=== PATIENT | male | born 1975 | race Caucasian/White ===

== ENCOUNTER 2018-05-24 07:05 | Emergency (ER) | payer MEDICAID ==
[~2018-05-24] VITALS: Ht 172.7 cm; Wt 106.6 kg
[~2018-05-24 07:05] MED LIST: ALPR0.5T96 PO; GLU500 PO; HUMALIN SQ
[2018-05-24 07:10] VITALS: BP_SYST 148
[2018-05-24] MEDS ORDERED: SULFAMETHOXAZOLE/TRIMETHOPR DS 1 TABLET PO ONE (07:45)
[2018-05-24 08:05] VITALS: BP_SYST 132
== END 2018-05-24 08:05 | disposition home or self-care (01) ==
LOC: SED 07:05
DX: L03.032 Cellulitis of left toe (principal); E11.9 Type 2 diabetes mellitus without complications; I10 Essential (primary) hypertension; Z88.0 Allergy status to penicillin; Z79.899 Other long term (current) drug therapy
CPT/HCPCS: 99283

== ENCOUNTER 2018-08-18 07:33 | Emergency (ER) | payer MEDICAID ==
[~2018-08-18] VITALS: Ht 172.7 cm; Wt 106.6 kg
[2018-08-18 07:33] VITALS: BP_SYST 155
[~2018-08-18 07:33] MED LIST changes: +ALPR0.5T PO; -ALPR0.5T96 PO
[2018-08-18 08:14] VITALS: BP_SYST 155
== END 2018-08-18 08:14 | disposition home or self-care (01) ==
LOC: SED 07:33
DX: H60.91 Unspecified otitis externa, right ear (principal); Z88.0 Allergy status to penicillin; Z79.899 Other long term (current) drug therapy
CPT/HCPCS: 99283

== ENCOUNTER 2019-01-16 06:48 | Inpatient (IN) | payer OTHER ==
[~2019-01-16] VITALS: Ht 172.7 cm; Wt 105.2 kg
[2019-01-16 06:50] VITALS: BP_SYST 176
[2019-01-16] MEDS ORDERED: LISI10TA5 PO (07:16)
[2019-01-16 08:08] LABS: HEMATOCRIT 47.2 % (36-54); HEMOGLOBIN 16.2 g/dL (14.0-18.0); LYMPHOCYTES % (AUTO) 33.7 % (20.5-51.5); MEAN CORPUSCULAR HEMOGLOBIN 32 pg (27-31); MEAN CORPUSCULAR HGB CONC 34 % (32-36); MEAN CORPUSCULAR VOLUME 92 fL (79.0-98.0); MONOCYTES % (AUTO) 7.5 % (1.7-9.3); NEUTROPHILS % (AUTO) 55.6 % (40.0-70.0); PLATELET COUNT (AUTO) 240 K/uL (130-430); RED CELL DISTRIBUTION WIDTH 13.3 % (9.0-15.0); WHITE BLOOD COUNT (AUTO) 6.5 K/uL (4.8-10.8)
[2019-01-16 08:09] LABS: BASOPHILS # (AUTO) 0.1 K/uL (0.0-0.2); BASOPHILS % (AUTO) 0.9 % (0.0-2.0); EOSINOPHILS # (AUTO) 0.1 K/uL (0.0-0.4); EOSINOPHILS % (AUTO) 2.3 % (0.0-4.0); LYMPHOCYTES # (AUTO) 2.2 K/uL (1.0-5.5); MONOCYTES # (AUTO) 0.5 K/uL (0.0-1.0); NEUTROPHILS # (AUTO) 3.6 K/uL (1.8-7.7)
[2019-01-16 08:10] LABS: INR 0.9 (0.80-1.20); PROTHROMBIN TIME 9.7 SECS (9.5-12.5)
[2019-01-16 08:11] LABS: CALCIUM 8.3 mg/dL (8.4-11.0); CREATININE 0.57 mg/dL (0.55-1.30); POTASSIUM 3.7 mmol/L (3.5-5.1)
[2019-01-16 08:16] LABS: ALBUMIN 3.6 g/dL (3.4-4.8); TOTAL BILIRUBIN 0.5 mg/dL (0.0-1.0)
[2019-01-16 08:21] LABS: BILIRUBIN,URINE NEGATIVE (NEGATIVE); BLOOD, URINE NEGATIVE (NEGATIVE); CLARITY/URINE CLEAR (CLEAR); COLOR,URINE YELLOW (YELLOW); GLUCOSE,URINE 3+ (NEGATIVE); KETONES,URINE NEGATIVE (NEGATIVE); LEUKOCYTE ESTERASE ,URINE NEGATIVE (NEGATIVE); NITRITE, URINE NEGATIVE (NEGATIVE); PH,URINE 6.5 (5.0-8.0); PROTEIN URINE NEGATIVE (NEGATIVE); UROBILINOGEN,URINE 0.2 (0.2-1.0)
[2019-01-16 08:27] LABS: BACTERIA,URINE RARE /HPF (None Seen); MUCUS,URINE 1+ /LPF (None Seen); RBC,URINE 0-3 /HPF (0-3); WBC,URINE 0-3 /HPF (0-3)
[2019-01-16 08:29] LABS: BARBITURATE, URINE NEGATIVE (NEG <=200); BENZODIAZEPINE, URINE NEGATIVE (NEG <=150); CANNABINOID, URINE NEGATIVE (NEG <=50); COCAINE, URINE NEGATIVE (NEG <=150); METHAMPHETAMINES SCREEN,URINE NEGATIVE (NEG <=500); OPIATE, URINE NEGATIVE (NEG <=100); PHENCYCLIDINE SCREEN,URINE NEGATIVE (NEG <=25); UR TRICYCLIC ANTIDEPRESSANTS NEGATIVE (NEG <=300); URINE AMPHETAMINE NEGATIVE (NEG <=500); URINE METHADONE NEGATIVE (NEG <=200); URINE OXYCODONE SCREEN NEGATIVE (NEG <=100); URINE PROPOXYPHENE SCREEN NEGATIVE (NEG <=300)
[2019-01-16 10:37] VITALS: BP_SYST 146
[2019-01-16] MEDS ORDERED: ASPIRIN 81 MG TAB.CHEW PO ONE (13:45)
[2019-01-16] MEDS ORDERED: D5W 1,000 ML IV PRN (14:39)
[2019-01-16] MEDS ORDERED: HYDROcodone/ACETAMIN 5-325 MG TAB (NORCO/ VICODIN) PO PRN (14:45)
[2019-01-16] MEDS ORDERED: DEXTROSE 50% JECT 50 ML DISP.SYRIN IVP PRN (14:45)
[2019-01-16] MEDS ORDERED: ONDANSETRON HCL 4 MG/2 ML VIAL IVP PRN (14:45)
[2019-01-16] MEDS ORDERED: HYDROcodone/ACETAMIN 10-325 MG TAB PO PRN (14:45)
[2019-01-16] MEDS ORDERED: LORazepam 2 MG/ML VIAL IVP PRN (14:45)
[2019-01-16] MEDS ORDERED: GLUCOSE 15 GM GEL (in 37.5 GM TUBE) PO PRN (14:45)
[2019-01-16 16:00] VITALS: BP_SYST 140
[2019-01-16] MEDS: INSULIN REGULAR, HUMAN 100 UNITS/ML, 10 ML VIAL (novoLIN R) SUBCUT PRN ×2 (17:30→21:48)
[2019-01-16] MEDS: metFORMIN HCL 500 MG TABLET PO SCH (17:32)
[2019-01-16] MEDS ORDERED: SSNPH SQ (19:38)
[2019-01-16 20:00] VITALS: BP_SYST 144
[2019-01-16] MEDS ORDERED: INSULIN NPH 100 UNITS/ML 10 ML VIAL SUBCUT SCH (21:00)
[2019-01-16] MEDS ORDERED: NPH, HUMAN INSULIN ISOPHANE 100 UNITS/ ML 10 ML VIAL SQ SCH (21:00)
[2019-01-16] MEDS ORDERED: HUMALIN SQ SCH (21:00)
[2019-01-16] MEDS: LISINOPRIL 10 MG TABLET (PRINIVIL) PO SCH (21:42)
[2019-01-16] MEDS: ALPRAZolam 0.25 MG TABLET PO SCH (21:42)
[2019-01-16] MEDS: NORMAL SALINE 5 ML DISP.SYRIN IVF SCH (21:50)
[2019-01-17] VITALS: BP_SYST 126
[2019-01-17] MEDS: NORMAL SALINE 5 ML DISP.SYRIN IVF SCH ×2 (06:16→14:02)
[2019-01-17 07:23] LABS: ALBUMIN 3.2 g/dL (3.4-4.8); CALCIUM 8.7 mg/dL (8.4-11.0); CREATININE 0.66 mg/dL (0.55-1.30); PHOSPHORUS 4.1 mg/dL (2.7-4.5); POTASSIUM 3.7 mmol/L (3.5-5.1); TOTAL BILIRUBIN 0.5 mg/dL (0.0-1.0)
[2019-01-17 07:37] LABS: WHITE BLOOD COUNT (AUTO) 7.7 K/uL (4.8-10.8)
[2019-01-17 07:38] LABS: HEMATOCRIT 45.8 % (36-54); MEAN CORPUSCULAR HEMOGLOBIN 32 pg (27-31); MEAN CORPUSCULAR HGB CONC 35 % (32-36); MEAN CORPUSCULAR VOLUME 93 fL (79.0-98.0); MONOCYTES % (AUTO) 6.6 % (1.7-9.3); NEUTROPHILS % (AUTO) 55.9 % (40.0-70.0); PLATELET COUNT (AUTO) 260 K/uL (130-430); RED BLOOD CELL COUNT(AUTO) 4.95 MIL/uL (4.2-6.2); RED CELL DISTRIBUTION WIDTH 32.2 % (9.0-15.0)
[2019-01-17 07:39] LABS: BASOPHILS # (AUTO) 0.1 K/uL (0.0-0.2); BASOPHILS % (AUTO) 0.7 % (0.0-2.0); EOSINOPHILS # (AUTO) 0.2 K/uL (0.0-0.4); EOSINOPHILS % (AUTO) 2.8 % (0.0-4.0); LYMPHOCYTES # (AUTO) 2.6 K/uL (1.0-5.5); MONOCYTES # (AUTO) 0.5 K/uL (0.0-1.0); NEUTROPHILS # (AUTO) 4.3 K/uL (1.8-7.7)
[2019-01-17 08:02] VITALS: BP_SYST 144
[2019-01-17] MEDS: metFORMIN HCL 500 MG TABLET PO SCH ×2 (08:19→17:06)
[2019-01-17] MEDS: LISINOPRIL 10 MG TABLET (PRINIVIL) PO SCH (08:20)
[2019-01-17] MEDS: ALPRAZolam 0.25 MG TABLET PO SCH (08:20)
[2019-01-17] MEDS: ACETAMINOPHEN 325 MG TABLET PO PRN ×2 (08:21→12:50)
[2019-01-17 13:07] VITALS: BP_SYST 109
[2019-01-17 16:48] VITALS: BP_SYST 124
[2019-01-17] MEDS: INSULIN REGULAR, HUMAN 100 UNITS/ML, 10 ML VIAL (novoLIN R) SUBCUT PRN (17:09)
== END 2019-01-17 17:30 | disposition left against medical advice (07) | DRG 92 ==
LOC: SED 06:48 → STU 10:02
PROVIDERS: ADMIT Preventive Medicine Preventive Medicine/Occupational Environmental Medicine; ATTEND Preventive Medicine Preventive Medicine/Occupational Environmental Medicine
DX: R20.0 Anesthesia of skin (principal); E87.1 Hypo-osmolality and hyponatremia; R55 Syncope and collapse; I10 Essential (primary) hypertension; E78.00 Pure hypercholesterolemia, unspecified; E11.65 Type 2 diabetes mellitus with hyperglycemia; Z53.21 Procedure and treatment not carried out due to patient leaving prior to being seen by health care provider; E83.51 Hypocalcemia; J45.909 Unspecified asthma, uncomplicated; Z88.0 Allergy status to penicillin; Z79.84 Long term (current) use of oral hypoglycemic drugs
CPT/HCPCS: 36415; 70450-TC; 71045; 80053; 80307; 81000-TC; 82962; 83735-TC; 84100-TC; 84484; 85025; 85610-TC; 85730-TC; 93005; 93306; 93880; 95816; 99285; G0378; J1815

== ENCOUNTER 2019-02-27 16:24 | Outpatient (CLI) | payer OTHER ==
[~2019-02-27 16:24] MED LIST changes: +LISI10TA5 PO; +SSNPH SQ
[2019-02-28 23:08] LABS: NEISSERIA GONORRHOEAE NAA Negative (Negative)
[2019-03-01 06:07] LABS: CHLAMYDIA TRACHOMATIS NAA Indeterminate (Negative)
== END 2019-02-27 21:29 | disposition home or self-care (01) ==
LOC: SLB 16:24
PROVIDERS: ATTEND Family Medicine
DX: Z11.3 Encounter for screening for infections with a predominantly sexual mode of transmission (principal)
CPT/HCPCS: 87491; 87591

== ENCOUNTER 2024-05-26 18:44 | Emergency (ER) | payer OTHER ==
[~2024-05-26] VITALS: Ht 172.7 cm; Wt 104.3 kg
[~2024-05-26 18:44] MED LIST changes: +LISI10TA29 PO; -LISI10TA5 PO
[2024-05-26 18:59] VITALS: BP_SYST 150; PULSE 87; RESP 18; TEMP 96.9; O2SAT 99
[2024-05-26] MEDS: KETOROLAC TROMETHAMINE 30 MG VIAL IM ONE (21:35)
[2024-05-26] MEDS ORDERED: IBUP-1969 PO (22:08)
[2024-05-26] MEDS ORDERED: ACET-2634 PO (22:08)
[2024-05-26 22:14] VITALS: BP_SYST 124; PULSE 81; RESP 18; O2SAT 98
== END 2024-05-26 22:14 | disposition home or self-care (01) ==
LOC: SED 18:44
DX: M79.674 Pain in right toe(s) (principal); J45.909 Unspecified asthma, uncomplicated; E11.9 Type 2 diabetes mellitus without complications; I10 Essential (primary) hypertension; Z88.0 Allergy status to penicillin; Z79.899 Other long term (current) drug therapy; Z79.2 Long term (current) use of antibiotics
CPT/HCPCS: 99283; 73660; 96372; J1885